=== PATIENT | female | born 1960 | race Hispanic/Latino ===

== ENCOUNTER 2025-02-04 11:09 | Inpatient (IN) | payer MEDICARE, OTHER ==
[~2025-02-04] VITALS: Ht 147.3 cm; Wt 122.5 kg
[2025-02-04 12:25] LABS: BASOPHILS % 0.4 % (0.0-1.0); EOSINOPHILS % 0.7 % (0.0-6.0); LYMPHOCYTES % 9.7 % (18.0-39.1); MONOCYTES % 8.6 % (4.4-11.3); NEUTROPHILS % 79.7 % (38.7-80.0); RED CELL DISTRIBUTION WIDTH 14.2 % (11.7-14.4)
[2025-02-04] MEDS: ONDANSETRON HCL INJ 2MG/ML 2ML 2 MG/ML VIAL IV STA (12:27)
[2025-02-04] MEDS: SODIUM CHLORIDE 0.9% 1000ML 1,000 ML IV STA ×2 (12:27→14:49)
[2025-02-04 12:29] LABS: INR 1.33
[2025-02-04] MEDS: Morphine 4mg INJECTION 4 MG/ML INJ IV STA (12:29)
[2025-02-04 12:40] LABS: EST GLOMERULAR FILTRATION RATE 50.0 ML/MIN (>=60)
[2025-02-04] MEDS ORDERED: IOPAMIDOL 370 MG/ML 100 ML INFUS..BTL INJ ONE (12:48)
[2025-02-04 14:36] LABS: LEUKOCYTE ESTERASE ,URINE NEGATIVE (NEGATIVE); PROTEIN,URINE DIPSTICK 2+ (NEGATIVE); URINE UROBILINOGEN 0.2 mg/dL (0.2 - 1)
[2025-02-04 14:47] LABS: WBC,URINE (MAN) 0-5 /HPF (0-5)
[2025-02-04 14:48] LABS: EPITHELIAL CELLS,URINE MANY /LPF
[2025-02-04] MEDS ORDERED: ONDANSETRON HCL INJ 2MG/ML 2ML 2 MG/ML VIAL IV PRN ×2 (15:30→17:45)
[2025-02-04 16:00] VITALS: PULSE 92; RESP 18; TEMP 98
[2025-02-04 17:00] VITALS: BP 139/77; PULSE 96; RESP 20; TEMP 97.7; O2SAT 96
[2025-02-04] MEDS ORDERED: DEXTROSE 50% SYRINGE 50 ML IV PRN (17:45)
[2025-02-04] MEDS ORDERED: ALBUTEROL/IPRATROPIUM 3 ML NEB NEB PRN (17:45)
[2025-02-04] MEDS ORDERED: ACETAMINOPHEN 325 MG TAB PO PRN (17:45)
[2025-02-04] MEDS ORDERED: BENZONATATE 100 MG CAP PO PRN (17:45)
[2025-02-04] MEDS ORDERED: DIPHENHYDRAMINE HCL 25 MG CAP PO PRN (17:45)
[2025-02-04] MEDS ORDERED: SIMETHICONE 80 MG CHEW PO PRN (17:45)
[2025-02-04] MEDS ORDERED: POTASSIUM CHLORIDE 20 MEQ TAB CR PO PRN (17:45)
[2025-02-04] MEDS ORDERED: DOCUSATE SODIUM 100 MG CAP PO PRN (17:45)
[2025-02-04] MEDS ORDERED: MELATONIN 5 MG TABLET PO PRN (17:45)
[2025-02-04] MEDS ORDERED: HYDRALAZINE HCL 20 MG/ML VIAL IV PRN (17:45)
[2025-02-04] MEDS: SODIUM CHLORIDE 0.9% 1000ML 1,000 ML IV SCH (18:00)
[2025-02-04] MEDS: Morphine 4mg INJECTION 4 MG/ML INJ IV PRN (18:01)
[2025-02-04 19:05] VITALS: BP 139/77; PULSE 96; RESP 20; TEMP 97.7; O2SAT 96
[2025-02-04 20:00] VITALS: BP 146/74; PULSE 95; RESP 18; TEMP 97.9; O2SAT 96
[2025-02-04 21:00] VITALS: BP 146/74; PULSE 95; RESP 18; TEMP 97.9; O2SAT 96
[2025-02-05] VITALS (9 sets, daily range): BP systolic 117–144; BP diastolic 54–82; PULSE 67–81; RESP 16–20; TEMP 97.6–98.8; O2SAT 94–97
[2025-02-05 06:35] LABS: BASOPHILS % 0.5 % (0.0-1.0); EOSINOPHILS % 1.2 % (0.0-6.0); LYMPHOCYTES % 10.2 % (18.0-39.1); MONOCYTES % 7.3 % (4.4-11.3); NEUTROPHILS % 79.8 % (38.7-80.0); RED CELL DISTRIBUTION WIDTH 14.0 % (11.7-14.4)
[2025-02-05 07:18] LABS: EST GLOMERULAR FILTRATION RATE 51.0 ML/MIN (>=60)
[2025-02-05] MEDS: PANTOPRAZOLE SOD 40 MG TABEC PO SCH (07:30)
[2025-02-05 08:03] LABS: CHOL/HDL RATIO 2.9 (3.0-3.6); LDL CHOLESTEROL 53.0 MG/DL (60-130)
[2025-02-05] MEDS ORDERED: ROCURONIUM BROMIDE 1 ML IV ONE (12:50)
[2025-02-05] MEDS ORDERED: LIDOCAINE HCL 2% LOCAL INJ 5 ML SDV VIAL INJ ONE (12:50)
[2025-02-05] MEDS ORDERED: PROPOFOL IV EMULSION 10 MG/ML 20 ML VIAL ONE (12:50)
[2025-02-05] MEDS ORDERED: SUCCINYLCHOLINE CHLORIDE 20 MG/ML 10ML VIAL ONE (13:34)
[2025-02-05] MEDS ORDERED: FENTANYL CITRATE/PF 100MCG/2 ML INJ ONE (13:34)
[2025-02-05] MEDS ORDERED: ONDANSETRON HCL INJ 2MG/ML 2ML 2 MG/ML VIAL ONE (13:57)
[2025-02-05] MEDS ORDERED: DEXAMETHASONE SOD PHOS INJ 4 MG/ML SDV ONE (13:57)
[2025-02-05] MEDS ORDERED: ACETAMINOPHEN 1000 MG/100 ML 100 ML IV ONE (14:01)
[2025-02-05] MEDS ORDERED: SUGAMMADEX SODIUM 200 MG/2 ML VIAL IV ONE (14:12)
[2025-02-05] MEDS: SODIUM CHLORIDE 0.9% 1000ML 1,000 ML IV SCH (15:00)
[2025-02-05] MEDS ORDERED: ACETAMINOPHEN 325 MG TAB PO PRN (15:00)
[2025-02-05] MEDS ORDERED: ONDANSETRON HCL INJ 2MG/ML 2ML 2 MG/ML VIAL IV PRN (15:00)
[2025-02-05] MEDS: FENTANYL CITRATE/PF 100MCG/2 ML INJ ONE (15:11)
[2025-02-05] MEDS: ENOXAPARIN SOD INJ 40 MG/0.4 ML SYR SC SCH (18:26)
[2025-02-06] VITALS (13 sets, daily range): BP systolic 134–175; BP diastolic 60–98; PULSE 66–81; RESP 17–20; TEMP 97.3–98.2; O2SAT 93–100
[2025-02-06 05:54] LABS: BASOPHILS % 0.2 % (0.0-1.0); EOSINOPHILS % 0.0 % (0.0-6.0); LYMPHOCYTES % 6.6 % (18.0-39.1); MONOCYTES % 2.5 % (4.4-11.3); NEUTROPHILS % 90.1 % (38.7-80.0); RED CELL DISTRIBUTION WIDTH 13.4 % (11.7-14.4)
[2025-02-06 06:37] LABS: EST GLOMERULAR FILTRATION RATE 60.0 ML/MIN (>=60)
[2025-02-06] MEDS: HYDROCODONE/APAP 5MG-325MG TAB PO PRN (10:27)
[2025-02-07] VITALS (8 sets, daily range): BP systolic 128–173; BP diastolic 71–91; PULSE 65–77; RESP 16–18; TEMP 97.5–97.8; O2SAT 96–100
[2025-02-07 06:09] LABS: BASOPHILS % 0.6 % (0.0-1.0); EOSINOPHILS % 0.5 % (0.0-6.0); LYMPHOCYTES % 15.4 % (18.0-39.1); MONOCYTES % 7.3 % (4.4-11.3); NEUTROPHILS % 75.6 % (38.7-80.0); RED CELL DISTRIBUTION WIDTH 13.8 % (11.7-14.4)
[2025-02-07 06:44] LABS: EST GLOMERULAR FILTRATION RATE 50.0 ML/MIN (>=60)
[2025-02-07] MEDS ORDERED: LOSARTAN POTASSIUM 100 MG TAB PO SCH (16:30)
[2025-02-07] MEDS ORDERED: CARVEDILOL 3.125 MG TAB PO SCH (16:30)
[2025-02-07] MEDS ORDERED: AMLODIPINE BESY10 MG PO (17:28)
[2025-02-07] MEDS ORDERED: HYDROCHLOROTH12.5 MG PO (17:31)
[2025-02-07] MEDS ORDERED: LISINOPRIL10 MG PO (17:31)
[2025-02-07] MEDS: AMLODIPINE BESYLATE 10 MG TAB PO SCH (17:50)
[2025-02-07] MEDS: LISINOPRIL 20 MG TAB PO SCH (17:51)
== END 2025-02-07 18:30 | disposition home or self-care (01) | DRG 854 ==
LOC: ER 11:36 → ERHOLD 15:21 → MED/SURG3 17:04
PROVIDERS: ADMIT Internal Medicine; ATTEND Internal Medicine
PROC: 3E03329 Introduction of Other Anti-infective into Peripheral Vein, Percutaneous Approach (ICD-10-PCS; 2025-02-04)
PROC: 0DNU4ZZ Release Omentum, Percutaneous Endoscopic Approach (ICD-10-PCS; 2025-02-05)
PROC: 0FT44ZZ Resection of Gallbladder, Percutaneous Endoscopic Approach (ICD-10-PCS; principal; 2025-02-05 13:43)
DX: A41.9 Sepsis, unspecified organism (principal); K80.00 Calculus of gallbladder with acute cholecystitis without obstruction; Z68.43 Body mass index [BMI] 50.0-59.9, adult; K82.A1 Gangrene of gallbladder in cholecystitis; K66.0 Peritoneal adhesions (postprocedural) (postinfection); K76.0 Fatty (change of) liver, not elsewhere classified; E66.01 Morbid (severe) obesity due to excess calories; N28.9 Disorder of kidney and ureter, unspecified; R00.0 Tachycardia, unspecified; I10 Essential (primary) hypertension; K21.9 Gastro-esophageal reflux disease without esophagitis; G47.33 Obstructive sleep apnea (adult) (pediatric); Z79.899 Other long term (current) drug therapy
CPT/HCPCS: 36415; 71045; 74177; 80048; 80053; 80061; 81001; 82550; 83605; 83690; 83735; 84484; 85025; 85610; 85730; 87040; 87086; 88304; 93005; 94799; 99284; J0330; J1100; J1650; J2003; J2270; J2405; J2470; J2543; J7030; Q9967